=== PATIENT | female | born 1985 | race Caucasian/White ===

== ENCOUNTER 2022-12-15 17:10 | Outpatient (CLI) | payer BC, OTHER, SELFPAY | END 2022-12-15 17:11 | disposition home or self-care (01) | LOC: NFLDREF 17:12 | PROVIDERS: Visit Provider Registered Nurse | DX: Z01.419 Encounter for gynecological examination (general) (routine) without abnormal findings (principal); Z13.29 Encounter for screening for other suspected endocrine disorder | CPT/HCPCS: 84443 ==

== ENCOUNTER 2023-04-01 08:03 | Outpatient (CLI) | payer BC, SELFPAY ==
--- NOTE | 2023-04-01 08:15 | CRLHL7_ITS ---
For Patients: As a result of the Century Cures Act, medical imaging exams and procedure reports are released immediately into your electronic medical record. You may view this report before your referring provider. If you have questions, please contact your health care provider. BILATERAL SCREENING MAMMOGRAM WITH COMPUTER-AIDED DETECTION AND TOMOSYNTHESIS TECHNIQUE: CC and MLO views were obtained. These mammographic images have been obtained using full-field digital technique. These mammographic images were interpreted with the benefit of computer-aided detection. Breast Tomosynthesis was used in this interpretation. COMPARISON FILM: Baseline. FINDINGS: The breasts are heterogeneously dense, which may obscure small masses IMPRESSION: There is no radiographic evidence for malignancy. ASSESSMENT: BI-RADS Category 1: Negative RECOMMENDATION: Routine screening mammogram in 1 year. A lay language report of this examination will be provided to the patient. BETSY ISSA M.D. Diagnostic/Nuclear Medicine Radiologist [email or web address] JMN:[email or web address]/Dictated by: Betsy Issa MD @ 04/01/2023 9:15:00 AM (Electronically Signed)
== END 2023-04-01 08:04 | disposition home or self-care (01) ==
LOC: MAMMO 08:07
PROVIDERS: Visit Provider Registered Nurse
DX: Z12.31 Encounter for screening mammogram for malignant neoplasm of breast (principal); R92.2 Inconclusive mammogram
CPT/HCPCS: 77063; 77067

== ENCOUNTER 2024-01-18 18:31 | Outpatient (CLI) | payer BC, SELFPAY ==
[2024-01-21 14:47] LABS: HPV Source Cervix; HPV, High Risk by TMA Not Detected
== END 2024-01-18 18:32 | disposition home or self-care (01) ==
PROVIDERS: Visit Provider Registered Nurse
DX: Z01.419 Encounter for gynecological examination (general) (routine) without abnormal findings (principal); Z12.4 Encounter for screening for malignant neoplasm of cervix; Z11.51 Encounter for screening for human papillomavirus (HPV)
CPT/HCPCS: 87624; 87625; 88141; 88142

== ENCOUNTER 2024-05-10 07:51 | Outpatient (CLI) | payer BC, SELFPAY | END 2024-05-10 07:52 | disposition home or self-care (01) | LOC: MAMMO 07:52 | PROVIDERS: Visit Provider Registered Nurse | DX: Z12.31 Encounter for screening mammogram for malignant neoplasm of breast (principal); R92.333 Mammographic heterogeneous density, bilateral breasts | CPT/HCPCS: 77063; 77067 ==

== ENCOUNTER 2025-01-30 18:04 | Outpatient (CLI) | payer BC, SELFPAY | END 2025-01-30 18:05 | disposition home or self-care (01) | PROVIDERS: Visit Provider Registered Nurse | DX: N92.0 Excessive and frequent menstruation with regular cycle (principal); R53.83 Other fatigue | CPT/HCPCS: 82306; 84439; 84443 ==

== ENCOUNTER 2025-02-06 07:11 | Outpatient (CLI) | payer BC, SELFPAY ==
--- NOTE | 2025-02-06 07:15 | CRLHL7_ITS ---
For Patients: As a result of the Century Cures Act, medical imaging exams and procedure reports are released immediately into your electronic medical record. You may view this report before your referring provider. If you have questions, please contact your health care provider. INDICATION: Excessive and frequent menstruation COMPARISON: None. TECHNIQUE: 2D calvillo-scale and color Doppler images were acquired of the pelvis using a transabdominal and transvaginal approach. Transvaginal imaging performed to better visualize the endometrial stripe and ovaries. FINDINGS: Sonographic images demonstrate a normal size and smooth outer contour of the uterus. Uterus measures 7.0 cm in length by 4.9 cm in AP diameter by 5.5 cm in transverse dimension. The myometrium has a normal uniform echotexture. The endometrial lining measures 8.4 mm in composite thickness. The right ovary measures 2.9 x 1.7 x 2.6 cm in size and the left ovary measures 2.7 x 1.5 x 1.4 cm. The ovaries demonstrate normal arterial and venous blood flow on color Doppler analysis. Trace physiologic fluid noted. IMPRESSION: Endometrial thickness 8.4 millimeters. The endometrial morphology is slightly irregular. No definitive evidence of polyp. No fibroid. Dictated by Toy Pace MD @ 02/06/2025 8:42:11 AM (Electronically Signed)
== END 2025-02-06 07:12 | disposition home or self-care (01) ==
LOC: US 07:11
PROVIDERS: Visit Provider Registered Nurse
DX: N92.0 Excessive and frequent menstruation with regular cycle (principal); R93.89 Abnormal findings on diagnostic imaging of other specified body structures
CPT/HCPCS: 76830; 76856